=== PATIENT | female | born 1980 | race Two or more races ===

== ENCOUNTER 2024-01-18 09:43 | Emergency (ER) | payer OTHER ==
[~2024-01-18] VITALS: Ht 152.4 cm; Wt 84.4 kg
[2024-01-18] MEDS ORDERED: CETIRIZINE HCL 5MG/5ML BLIST.PACK PO STA (13:29)
== END 2024-01-18 14:41 | disposition home or self-care (01) ==
LOC: ER 09:44
DX: J02.8 Acute pharyngitis due to other specified organisms (principal); B97.89 Other viral agents as the cause of diseases classified elsewhere; Z20.822 Contact with and (suspected) exposure to COVID-19

== ENCOUNTER 2024-02-03 08:29 | Emergency (ER) | payer OTHER ==
[~2024-02-03] VITALS: Ht 149.9 cm; Wt 84.4 kg
[2024-02-03] MEDS ORDERED: ASPIRIN 325 MG TABLET.EC PO STA (08:39)
[2024-02-03] MEDS ORDERED: ASPIRIN 325 MG TABLET.EC PO ONE (08:53)
[2024-02-03 09:27] LABS: HEMATOCRIT 36.8 % (36.0-45.00); HEMOGLOBIN 12.7 g/dL (12.0-15.00); MEAN CELL VOLUME 85.4 fL (80.00-100.00); MEAN CORPUSCULAR HEMOGLOBIN 29.5 pg (27.00-32.0); MEAN CORPUSCULAR HGB CONC 34.6 g/dl (32.0-36.0); PLATELET COUNT 215 K/uL (150-450); RED BLOOD COUNT 4.31 M/uL (4.00-6.00); RED CELL DISTRIBUTION WIDTH 13.2 % (11.5-14.5)
[2024-02-03 09:55] LABS: INR 0.99; PARTIAL THROMBOPLASTIN TIME 29.6 SECONDS (22.0-34.0); PROTHROMBIN TIME 10.4 SECONDS (9.0-11.5)
[2024-02-03 10:03] LABS: CALCIUM 8.8 mg/dL (8.5-10.1); CREATININE SERUM 0.7 mg/dL (0.55-1.02); GFR 92.21; POTASSIUM 3.81 mEq/L (3.5-5.1)
== END 2024-02-03 14:51 | disposition home or self-care (01) ==
LOC: ER 08:30
PROVIDERS: Emergency Medicine
DX: R07.9 Chest pain, unspecified (principal); J45.909 Unspecified asthma, uncomplicated; I10 Essential (primary) hypertension